=== PATIENT | female | born 1985 | race Caucasian/White ===

== ENCOUNTER 2016-11-12 11:28 | Emergency (ER) | payer MEDICAID ==
[~2016-11-12] VITALS: Ht 167.6 cm; Wt 128.8 kg
[~2016-11-12 11:28] MED LIST: IBUP-1222 PO; IBUP200T48 PO; OXYC-302 PO; PRENATAL VITAMINS; vicodin
[2016-11-12] MEDS ORDERED: LORazepam 1MG TABLET PO ONE (12:30)
[2016-11-12] MEDS ORDERED: ASPIRIN 81 MG TABLET CHEW PO ONE (12:30)
[2016-11-12] MEDS ORDERED: LORazepam 1MG TABLET ONE (12:31)
[2016-11-12] MEDS ORDERED: ASPIRIN 81 MG TABLET CHEW ONE (12:31)
[2016-11-12 13:03] LABS: HEMOGLOBIN 14.2 g/dL (11.7-16.4)
[2016-11-12 13:18] LABS: BLOOD UREA NITROGEN 9 mg/dL (7-18)
[2016-11-12 13:25] LABS: ASPARTATE AMINO TRANSFERASE 16 U/L (15-37)
[2016-11-12 13:26] LABS: IS PT STATUS REG ER OR PRE ER? YES
[2016-11-12 14:23] VITALS: BP 133/77
== END 2016-11-12 14:25 | disposition home or self-care (01) ==
LOC: ED 12:19
DX: R00.2 Palpitations (principal); I10 Essential (primary) hypertension; E66.9 Obesity, unspecified; F12.10 Cannabis abuse, uncomplicated
CPT/HCPCS: 36415; 71010; 80053; 84439; 84443; 84484; 85025; 85610; 93005

== ENCOUNTER 2017-10-21 11:11 | Emergency (ER) | payer MEDICAID ==
[~2017-10-21] VITALS: Ht 167.6 cm; Wt 132.8 kg
[~2017-10-21 11:11] MED LIST changes: -IBUP200T48 PO; +IBUP200T49 PO
[2017-10-21 11:25] VITALS: BP 144/83
[2017-10-21] MEDS ORDERED: HYDROcodone/APAP 5/325 TABLET PO ONE (12:30)
[2017-10-21] MEDS ORDERED: HYDROcodone/APAP 5/325 TABLET ONE (12:33)
== END 2017-10-21 13:06 | disposition home or self-care (01) ==
LOC: ED 12:50
DX: S90.31XA Contusion of right foot, initial encounter (principal); G89.11 Acute pain due to trauma; I10 Essential (primary) hypertension; E66.9 Obesity, unspecified; W10.9XXA Fall (on) (from) unspecified stairs and steps, initial encounter; Y93.89 Activity, other specified; Y92.89 Other specified places as the place of occurrence of the external cause; Y99.8 Other external cause status
CPT/HCPCS: 99284